=== PATIENT | female | born 1995 ===

== ENCOUNTER 2017-05-17 19:24 | Emergency (ER) | payer SELFPAY ==
[2017-05-17 20:36] LABS: Basophils % (Auto) 0.2 % (0.0-1.8); Hematocrit 35.2 % (30.3-42.9); Hemoglobin 11.7 gm/dl (10.1-14.3); Mean Corpuscular HGB Conc 33 % (30-34); Mean Corpuscular Volume 75 fl (79-97); Platelet Count 239 K/mm3 (140-440); Red Cell Distribution Width 14.6 % (13.2-15.2); White Blood Count 14.2 K/mm3 (4.5-11.0)
[2017-05-17 20:37] LABS: Mean Corpuscular Hemoglobin 25 pg (28-32)
[2017-05-17 20:52] LABS: Anion Gap 19 mmol/L; BUN/Creatinine Ratio 9; Blood Urea Nitrogen 6 mg/dL (7-17); Calcium 9.4 mg/dL (8.4-10.2); Carbon Dioxide 25 mmol/L (22-30); Glucose 87 mg/dL (65-100); Potassium 3.8 mmol/L (3.6-5.0); Sodium 141 mmol/L (137-145)
[2017-05-17] MEDS ORDERED: NACL 0.9% 1000 ML 1,000 ML IV ONE ×2 (21:13→23:02)
[2017-05-17] MEDS ORDERED: ZOFRAN IV ONE (21:13)
[2017-05-17] MEDS ORDERED: TORADOL IV ONE (21:13)
--- NOTE | 2017-05-17 21:14 | Emergency Department Report ---
ED General Adult HPI - General Chief complaint: Back Pain/Injury Stated complaint: BACK PAIN Time Seen by Provider: 05/17/17 20:59 Source: patient, EMS Mode of arrival: Stretcher Limitations: No Limitations - History of Present Illness Initial comments: Patient is a 22-year-old female no significant past medical history who presents with back pain nausea and vomiting has been gone for the last 5 days. Patient states that 5 days ago she started having some back pain is located in her lower back does not radiate anywhere as an achy type of pain. She rates the pain as a 6 out of 10 nothing makes it better or worse. Patient denies having any dysuria however she states that she has been very nauseous and has not been able to keep anything down which prompted her to come to the emergency department. Patient denies having any sick contacts any chest pain or any shortness of breath. - Related Data Previous Rx's Medication Instructions Recorded Last Taken Type Naproxen 250 mg PO BID #20 tablet 05/18/17 Unknown Rx Sulfamethoxazole/Trimethoprim 1 each PO BID #10 tablet 05/18/17 Unknown Rx [Bactrim DS TAB] Allergies Allergy/AdvReac Type Severity Reaction Status Date / Time No Known Allergies Allergy Verified 02/07/14 11:04 ED Review of Systems ROS: Stated complaint: BACK PAIN Other details as noted in HPI Constitutional: denies: chills, fever Eyes: denies: eye pain, eye discharge, vision change ENT: denies: ear pain, throat pain Respiratory: denies: cough, shortness of breath, wheezing Cardiovascular: denies: chest pain, palpitations Endocrine: no symptoms reported Gastrointestinal: nausea. denies: abdominal pain, diarrhea Genitourinary: denies: urgency, dysuria, discharge Musculoskeletal: back pain. denies: joint swelling, arthralgia Skin: denies: rash, lesions Neurological: denies: headache, weakness, paresthesias Psychiatric: denies: anxiety, depression Hematological/Lymphatic: denies: easy bleeding, easy bruising ED Past Medical Hx - Past Medical History Previous Medical History?: No - Surgical History Past Surgical History?: No - Social History Smoking Status: Never Smoker Substance Use Type: None - Medications Home Medications: Home Medications Medication Instructions Recorded Confirmed Last Taken Type Naproxen 250 mg PO BID #20 tablet 05/18/17 Unknown Rx Sulfamethoxazole/Trimethoprim 1 each PO BID #10 tablet 05/18/17 Unknown Rx [Bactrim DS TAB] ED Physical Exam - General Limitations: No Limitations General appearance: alert, in no apparent distress - Head Head exam: Present: atraumatic, normocephalic - Eye Eye exam: Present: normal appearance - ENT ENT exam: Present: mucous membranes moist - Neck Neck exam: Present: normal inspection - Respiratory Respiratory exam: Present: normal lung sounds bilaterally. Absent: respiratory distress - Cardiovascular Cardiovascular Exam: Present: regular rate, normal rhythm. Absent: systolic murmur, diastolic murmur, rubs, gallop - GI/Abdominal GI/Abdominal exam: Present: soft, normal bowel sounds - Extremities Exam Extremities exam: Present: normal inspection - Back Exam Back exam: Present: normal inspection - Neurological Exam Neurological exam: Present: alert, oriented X3 - Psychiatric Psychiatric exam: Present: normal affect, normal mood - Skin Skin exam: Present: warm, dry, intact, normal color. Absent: rash ED Course Vital Signs 05/17/17 05/17/17 05/17/17 19:32 19:43 20:00 Temperature 100.2 F H Pulse Rate 120 H 125 H 120 H Respiratory 18 11 L Rate Blood Pressure 112/60 110/61 O2 Sat by Pulse Oximetry 05/17/17 05/17/17 05/17/17 20:30 21:00 21:30 Temperature Pulse Rate 129 H 123 H 122 H Respiratory 15 13 23 Rate Blood Pressure 118/52 112/56 103/46 O2 Sat by Pulse 98 97 98 Oximetry 05/17/17 05/17/17 05/17/17 22:00 22:04 23:27 Temperature Pulse Rate 120 H Respiratory 43 H 16 18 Rate Blood Pressure 106/59 O2 Sat by Pulse Oximetry ED Medical Decision Making - Lab Data Result diagrams: 05/17/17 20:13 05/17/17 20:13 Lab Results 05/17/17 05/17/17 05/17/17 Range/Units 20:13 20:13 20:13 WBC 14.2 H (4.5-11.0) K/mm3 RBC 4.70 (3.65-5.03) M/mm3 Hgb 11.7 (10.1-14.3) gm/dl Hct 35.2 (30.3-42.9) % MCV 75 L (79-97) fl MCH 25 L (28-32) pg MCHC 33 (30-34) % RDW 14.6 (13.2-15.2) % Plt Count 239 (140-440) K/mm3 Lymph % (Auto) 5.5 L (13.4-35.0) % Bond % (Auto) 12.3 H (0.0-7.3) % Eos % (Auto) 0.0 (0.0-4.3) % Baso % (Auto) 0.2 (0.0-1.8) % Lymph # 0.8 L (1.2-5.4) K/mm3 Bond # 1.7 H (0.0-0.8) K/mm3 Eos # 0.0 (0.0-0.4) K/mm3 Baso # 0.0 (0.0-0.1) K/mm3 Seg Neutrophils % 82.0 H (40.0-70.0) % Seg Neutrophils # 11.6 H (1.8-7.7) K/mm3 Sodium 141 (137-145) mmol/L Potassium 3.8 (3.6-5.0) mmol/L Chloride 101.0 (98-107) mmol/L Carbon Dioxide 25 (22-30) mmol/L Anion Gap 19 mmol/L BUN 6 L (7-17) mg/dL Creatinine 0.7 (0.7-1.2) mg/dL Estimated GFR > 60 ml/min BUN/Creatinine Ratio 9 % Glucose 87 (65-100) mg/dL Calcium 9.4 (8.4-10.2) mg/dL HCG, Qual Negative (Negative) - Medical Decision Making Medical diagnosis: UTI Differential diagnosis: Myalgia, dehydration, viral illness, hypokalemia, hyponatremia I will get CBC, CMP, urinalysis, IV fluids, IV Zofran and IV morphine Patient's laboratory findings just reveal mild leukocytosis I will send patient home as she is feeling better after the fluids and she is no longer tachycardic. Discussed with patient patient agrees with plan additional verbal discharge instructions were given. Patient's urinalysis shows UTI all treated patient with oral Bactrim here and some patient with a prescription home. Discussed outpatient patient agrees with plan. Critical care attestation.: If time is entered above; I have spent that time in minutes in the direct care of this critically ill patient, excluding procedure time. ED Disposition Clinical Impression: Lower back pain Qualifiers: Chronicity: acute Back pain laterality: unspecified Sciatica presence: without sciatica Qualified Code(s): M54.5 - Low back pain Nausea & vomiting Qualifiers: Vomiting type: unspecified Vomiting Intractability: unspecified Qualified Code( s): R11.2 - Nausea with vomiting, unspecified UTI (urinary tract infection) Qualifiers: Urinary tract infection type: acute cystitis Hematuria presence: without hematuria Qualified Code(s): N30.00 - Acute cystitis without hematuria Disposition: TO HOME OR SELFCARE Is pt being admited?: No Does the pt Need Aspirin: No Condition: Stable Instructions: Urinary Tract Infection in Women (ED), Back Pain (ED) Prescriptions: Naproxen 250 mg PO BID #20 tablet Sulfamethoxazole/Trimethoprim [Bactrim DS TAB] 1 each PO BID #10 tablet Referrals: GUNNAR MENENDEZ MD [Referring] - 3-5 Days
[2017-05-17] MEDS ORDERED: MORPHINE IV ONE (23:02)
[2017-05-18 02:19] LABS: Bacteria,Urine 2+ /HPF (Negative); Bilirubin,Urine NEG (Negative); Blood,Urine MOD (Negative); Ketones,Urine 20 mg/dL (Negative); Leukocyte Esterase,Urine LG (Negative); Mucus,Urine FEW /HPF; Nitrite,Urine POS (Negative)
[2017-05-18] MEDS ORDERED: BACTRIM DS PO ONE (02:23)
[2017-05-18 03:20] VITALS: BP 96/54
== END 2017-05-18 04:05 | disposition home or self-care (01) ==
LOC: ED 19:24
DX: M54.5 Low back pain (principal); R11.2 Nausea with vomiting, unspecified; N30.00 Acute cystitis without hematuria
CPT/HCPCS: 36415; 80048; 81001; 82962; 84703; 85025; 96361; 96374; 96375; 99284; J1885; J2270; J2405; J7030